=== PATIENT | male | born 1945 | race American Indian/Alaskan Native ===

== ENCOUNTER 2016-10-21 10:34 | Outpatient (CLI) | payer MEDICARE ==
--- NOTE | 2016-10-21 11:52 | XRay Report ---
Left RIBS with PA chest, 5 views. Findings: The heart and pulmonary vessels are normal. The lungs are clear. There is no pleural fluid. No rib fractures or other rib abnormalities are seen. Impression: No acute findings. Normal rib series.
== END 2016-10-21 10:35 | disposition home or self-care (01) ==
LOC: XRAY 10:34
PROVIDERS: ATTEND Internal Medicine
DX: M48.06 Spinal stenosis, lumbar region (principal); M43.16 Spondylolisthesis, lumbar region